=== PATIENT | female | born 1945 | race Two or more races ===

== ENCOUNTER → 2021-06-19 | Emergency (ER) | payer OTHER ==
[~2021-06-19] VITALS: Ht 160 cm; Wt 70.3 kg
[~2021-06-19] MED LIST: ATENOLOL25 GM; NORVASC2.5 MG
== END | disposition home or self-care (01) ==
LOC: ER 17:16
DX: I16.1 Hypertensive emergency (principal); I10 Essential (primary) hypertension

== ENCOUNTER 2023-07-05 02:36 | Emergency (ER) | payer OTHER ==
[~2023-07-05] VITALS: Ht 160 cm; Wt 56.7 kg
[2023-07-05 04:15] LABS: CALCIUM 9.3 mg/dL (8.5-10.1); CREATININE SERUM 1.29 mg/dL (0.55-1.02); GFR 39.97; POTASSIUM 4.02 mEq/L (3.5-5.1)
== END 2023-07-05 04:55 | disposition home or self-care (01) ==
LOC: ER 02:36
DX: I10 Essential (primary) hypertension (principal)